=== PATIENT | male | born 1965 | race Caucasian/White ===

== ENCOUNTER 2017-09-29 01:54 | Emergency (ER) | payer OTHER ==
[~2017-09-29] VITALS: Ht 175.3 cm; Wt 95.0 kg
[~2017-09-29 01:54] MED LIST: COLC0.6T67 PO; LOP25T PO; PANT40TA4 PO; PRED20TA PO
[2017-09-29 02:36] VITALS: BP 186/136
== END 2017-09-29 02:39 | disposition home or self-care (01) ==
LOC: ER 01:55
DX: M10.9 Gout, unspecified (principal); I10 Essential (primary) hypertension; E78.00 Pure hypercholesterolemia, unspecified; Z87.442 Personal history of urinary calculi; Z88.5 Allergy status to narcotic agent
CPT/HCPCS: 99281